=== PATIENT | male | born 1990 | race Caucasian/White ===

== ENCOUNTER 2019-01-07 19:03 | Emergency (ER) | payer BC ==
[2019-01-07 19:29] VITALS: BP 145/83
[2019-01-07] MEDS ORDERED: Tetan/Diph/Pertus SYR(Tdap)* 0.5 ML SYR(BOOSTRIX) use SYR IM ONE (19:34)
--- NOTE | 2019-01-07 19:39 | UC ---
Skin Complaint HPI - HPI Summary HPI Summary: 28-year-old who was bitten in his right index finger by the family cat which is up-to-date on all immunizations. This happened on Monday and since then the areas become mildly swollen and with erythema. His last tetanus was in 2010. - History of Current Complaint Chief Complaint: UCBiteInjury Time Seen by Provider: 01/07/19 19:14 Stated Complaint: CAT BITE RIGHT HAND Hx Obtained From: Patient Onset/Duration: Sudden Onset Skin Exposure Onset/Duration: Days Ago Timing: Constant Onset Severity: Mild Current Severity: Moderate Pain Intensity: 2 Location: Hand (Right) Character: Swelling, Pain, Redness Aggravating Factor(s): Nothing Alleviating Factor(s): Nothing Associated Signs & Symptoms: Positive: Drainage - Small amount of yellow pus drainage., Tenderness - Patient has mild erythema in that area but no streaking up his arm. He did place a ana paula where the edge of the redness is. - Allergy/Home Medications Allergies/Adverse Reactions: Allergies Allergy/AdvReac Type Severity Reaction Status Date / Time No Known Allergies Allergy Verified 01/07/19 19:25 PMH/Surg Hx/FS Hx/Imm Hx Previously Healthy: Yes - Surgical History Surgical History: Yes Surgery Procedure, Year, and Place: ear tubes. adenoids - Family History Known Family History: Positive: Non-Contributory - Social History Alcohol Use: Weekly Substance Use Type: None Smoking Status (MU): Never Smoked Tobacco Type: Smokeless Tobacco - Immunization History Most Recent Tetanus Shot: 2010 Review of Systems All Other Systems Reviewed And Are Negative: Yes Skin: Positive: Other - Redness and swelling to the right index finger and proximal to the finger. Motor: Positive: Negative Neurovascular: Positive: Negative Musculoskeletal: Positive: Negative Neurological: Positive: Negative Is Patient Immunocompromised?: No Physical Exam Triage Information Reviewed: Yes Appearance: Well-Appearing, No Pain Distress, Well-Nourished Vital Signs: Initial Vital Signs Temp 98.5 F 01/07/19 19:25 Pulse 93 01/07/19 19:25 Resp 20 01/07/19 19:25 BP 145/83 01/07/19 19:25 Pulse Ox 100 01/07/19 19:25 Vital Signs Reviewed: Yes Musculoskeletal: Positive: Strength Intact, ROM Intact, Other: - Mild swelling of the right index finger with 2 small bite hart of which I can express a small amount of yellow pus. This area and proximal to it has mild erythema with mild tenderness on palpation. Patient has full range of motion with good peripheral pulses neuro sensation capillary refill. Good finger strength with flexion extension against resistance. Neurological: Positive: Alert, Muscle Tone Normal Psychological Exam: Normal Skin: Positive: Other Course/Dx - Course Course Of Treatment: Patient was given TD immunization here and he is to do warm salt water soaks 4- 6 times a day and definite follow-up care [facility] if no improvement in 2 or 3 days however he stood go to the emergency room if he develops red streaking, fever or chills or worsening symptoms. - Diagnoses Provider Diagnosis: Cellulitis of finger of right hand Discharge - Sign-Out/Discharge Documenting (check all that apply): Patient Departure All imaging exams completed and their final reports reviewed: No Studies - Discharge Plan Condition: Fair Disposition: HOME Prescriptions: Amoxicillin/Clavulanate TAB* [Augmentin TAB 875*] 875 mg PO BID 10 Days #20 tab Patient Education Materials: Animal Bite (ED) Referrals: No Primary Care Phys,NOPCP [Primary Care Provider] - [facility] [Outside] Additional Instructions: Warm salt water soaks 4-6 times a day 20 minutes each time. Elevate as much as possible. Take the Augmentin with food. Definite follow-up at [facility] if any worsening symptoms, if you develops streaking up your arm with fever or chills follow-up in the emergency room. - Billing Disposition and Condition Condition: FAIR Disposition: Home
== END 2019-01-07 19:47 | disposition home or self-care (01) ==
LOC: UCCORT 19:03
DX: L03.113 Cellulitis of right upper limb (principal); Z23 Encounter for immunization; W55.01XA Bitten by cat, initial encounter
CPT/HCPCS: 90471; 90715; 99202; G0463